=== PATIENT | male | born 1940 | race Caucasian/White ===

== ENCOUNTER 2021-05-03 09:15 | Inpatient (IN) ==
[2021-05-03] MEDS ORDERED: FUROSEMIDE 100 MG/10 ML VIAL IV STA (09:46)
[2021-05-03 10:12] LABS: Basophils % 0.3 % (0.0-0.8); Eosinophils # 0.2 10*3/uL (0.0-0.87); Eosinophils % 2.4 % (0.00-10.9); Hematocrit 32.1 VOL% (42.0-52.0); Hemoglobin 9.8 GM/DL (14.0-18.0); Immature Granulocytes % 0.4 %; Immature Granulocytes Absolute 0.03 #; Lymphocytes # 1.1 10*3/uL (1.4-4.0); Lymphocytes % 14.7 % (21.2-54.2); Mean Corpuscular HGB Conc 30.5 GM/DL (32-36); Mean Corpuscular Volume 104.2 FL (87-102); Neutrophils % 74.2 % (38.7-73.9); Platelet Count 185 T/CUMM (130-400); Red Blood Count 3.08 MC/CUMM (3.8-5.5); Red Cell Distribution Width 13.7 % (9.3-17.3); White Blood Count 7.4 T/CUMM (4-12)
[2021-05-03 10:24] LABS: Bilirubin,Total 0.5 MG/DL (0.20-1.00); Calcium 9.4 MG/DL (8.5-10.1); Total Protein 7.9 G/DL (6.4-8.2)
[2021-05-03 10:27] LABS: Osmolality,Calculated 266.4 MOS/KG (273-304); Potassium 3.8 MMOL/L (3.5-5.1)
[2021-05-03 11:51] LABS: ABG HCO3 37.9 MMOL/L (20-26); ABG PH 7.301 (7.35-7.45); ABG TCO2 40.7 MMOL/L (23-27)
[2021-05-03 11:53] LABS: ABG PCO2 90.1 MM HG (35-48)
[2021-05-03] MEDS ORDERED: hydrALAZINE 20 MG/1 ML VIAL IV PRN (11:56)
[2021-05-03] MEDS ORDERED: DEXTROSE 50% 25 GM/50 ML VIAL IV PRN (12:12)
[2021-05-03] MEDS ORDERED: GLUCAGON 1 MG VIAL IM PRN (12:12)
[2021-05-03] MEDS ORDERED: ACETAMINOPHEN 325 MG TABLET PO ONE (12:36)
[2021-05-03 12:39] LABS: Risk Ratio 2.85; Thyroid Stimulating Hormone 1.95 uIU/ml (0.358-3.74); VLDL Cholesterol 16.6 MG/DL
[2021-05-03] MEDS ORDERED: ZALEPLON 5 MG CAPSULE PO PRN (13:33)
[2021-05-03] MEDS ORDERED: guaiFENesin 200 MG/10 ML UDCUP PO PRN (13:33)
[2021-05-03 14:36] LABS: Folate > 24.00 NG/ML (5.38-24.0); Vitamin B12 592 PG/ML (211-911)
[2021-05-03] MEDS: INSULIN LISPRO 100 UNIT/ML SUBCUT SCH ×2 (18:31→22:28)
[2021-05-03] MEDS: carvediloL 3.125 MG TABLET PO SCH (18:34)
[2021-05-03] MEDS: ALBUTEROL/IPRATROPIUM 3 ML NEB RESP TX SCH (19:40)
[2021-05-03] MEDS: SACUBITRIL/VALSARTAN 49-51 MG TABLET PO SCH (22:26)
[2021-05-03] MEDS: SIMVASTATIN 20 MG TABLET PO SCH (22:27)
[2021-05-03] MEDS: GABAPENTIN 300 MG CAPSULE PO SCH (22:27)
[2021-05-03] MEDS: POTASSIUM CHLORIDE 10 MEQ TABLET PO SCH (22:27)
[2021-05-03] MEDS: APIXABAN 5 MG TABLET PO SCH (22:28)
[2021-05-03] MEDS: FUROSEMIDE 40 MG/4 ML VIAL IV SCH (22:28)
[2021-05-04] MEDS ORDERED: INFLUENZA VIRUS VACCINE 0.5 ML SYRINGE IM ONE (00:06)
[2021-05-04 04:21] LABS: ABG Base Excess 16.5 MMOL/L (-2.5-2.5); ABG HCO3 40.5 MMOL/L (20-26); ABG Oxygen Saturation 98.7 % (95-100); ABG PH 7.337 (7.35-7.45); ABG TCO2 42.6 MMOL/L (23-27)
[2021-05-04 04:27] LABS: ABG PCO2 85.8 MM HG (35-48)
[2021-05-04 06:27] LABS: Basophils % 0.3 % (0.0-0.8); Eosinophils # 0.1 10*3/uL (0.0-0.87); Eosinophils % 1.8 % (0.00-10.9); Hemoglobin 9.1 GM/DL (14.0-18.0); Immature Granulocytes % 0.4 %; Immature Granulocytes Absolute 0.03 #; Lymphocytes # 0.9 10*3/uL (1.4-4.0); Lymphocytes % 11.7 % (21.2-54.2); Mean Corpuscular HGB Conc 31.4 GM/DL (32-36); Mean Corpuscular Volume 104.3 FL (87-102); Mean Platelet Volume 10.1 FL (9.6-12.0); Monocytes % 11.1 % (1.7-12.7); Neutrophils % 74.7 % (38.7-73.9); Platelet Count 159 T/CUMM (130-400); Red Blood Count 2.78 MC/CUMM (3.8-5.5); Red Cell Distribution Width 13.9 % (9.3-17.3)
[2021-05-04 06:54] LABS: Calcium 9.3 MG/DL (8.5-10.1); Osmolality,Calculated 269.2 MOS/KG (273-304); Potassium 3.4 MMOL/L (3.5-5.1)
[2021-05-04] MEDS: ALBUTEROL/IPRATROPIUM 3 ML NEB RESP TX SCH ×3 (07:43→19:30)
[2021-05-04] MEDS ORDERED: POTASSIUM CHLORIDE 20 MEQ TABLET PO ONE (09:41)
[2021-05-04] MEDS: APIXABAN 5 MG TABLET PO SCH ×2 (10:09→21:56)
[2021-05-04] MEDS: GABAPENTIN 300 MG CAPSULE PO SCH ×2 (10:09→21:56)
[2021-05-04] MEDS: POTASSIUM CHLORIDE 10 MEQ TABLET PO SCH ×2 (10:09→21:55)
[2021-05-04] MEDS: SACUBITRIL/VALSARTAN 49-51 MG TABLET PO SCH (10:09)
[2021-05-04] MEDS: PANTOPRAZOLE 40 MG TABLET PO SCH (10:09)
[2021-05-04] MEDS: carvediloL 3.125 MG TABLET PO SCH ×2 (10:10→17:05)
[2021-05-04] MEDS: FUROSEMIDE 40 MG/4 ML VIAL IV SCH ×2 (10:14→17:05)
[2021-05-04] MEDS: POLYETHYLENE GLYCOL POWDER 17 GM PACK PO SCH (10:18)
[2021-05-04] MEDS: INSULIN LISPRO 100 UNIT/ML SUBCUT SCH ×3 (10:18→17:06)
[2021-05-04 10:26] LABS: High Sensitive Troponin I* 91.7 ng/L (0-78)
[2021-05-04] MEDS: SPIRONOLACTONE 25 MG TABLET PO SCH (11:23)
[2021-05-04 12:44] LABS: High Sensitive Troponin I* 89.1 ng/L (0-78)
[2021-05-04] MEDS: ZINC OXIDE PASTE 113 GM TUBE TOP SCH ×2 (13:54→21:56)
[2021-05-04] MEDS: PIPERACILLIN/TAZOBACTAM 3,375 MG in SODIUM CHLORIDE 0.9% 100 ML IV SCH ×2 (17:18→23:36)
[2021-05-04] MEDS: SIMVASTATIN 20 MG TABLET PO SCH (21:56)
[2021-05-04] MEDS: ACETAMINOPHEN 325 MG TABLET PO PRN (23:36)
[2021-05-05] MEDS: INSULIN LISPRO 100 UNIT/ML SUBCUT SCH ×4 (03:01→16:59)
[2021-05-05 03:33] LABS: ABG Base Excess 16.5 MMOL/L (-2.5-2.5); ABG HCO3 43.3 MMOL/L (20-26); ABG Oxygen Saturation 74.7 % (95-100); ABG PCO2 67.8 MM HG (35-48); ABG PH 7.423 (7.35-7.45); ABG TCO2 45.4 MMOL/L (23-27)
[2021-05-05 03:50] LABS: ABG PO2 39.9 MM HG (80-95)
[2021-05-05 04:33] LABS: ABG Base Excess 16.4 MMOL/L (-2.5-2.5); ABG HCO3 43.6 MMOL/L (20-26); ABG Oxygen Saturation 98.3 % (95-100); ABG PH 7.399 (7.35-7.45); ABG PO2 124.1 MM HG (80-95); ABG TCO2 45.8 MMOL/L (23-27)
[2021-05-05 04:42] LABS: ABG PCO2 72.1 MM HG (35-48)
[2021-05-05] MEDS: ACETAMINOPHEN 325 MG TABLET PO PRN ×2 (04:55→21:26)
[2021-05-05] MEDS: PIPERACILLIN/TAZOBACTAM 3,375 MG in SODIUM CHLORIDE 0.9% 100 ML IV SCH ×2 (06:27→16:16)
[2021-05-05] MEDS: ALBUTEROL/IPRATROPIUM 3 ML NEB RESP TX SCH ×3 (07:50→19:12)
[2021-05-05 08:33] LABS: Basophils % 0.4 % (0.0-0.8); Eosinophils # 0.2 10*3/uL (0.0-0.87); Eosinophils % 2.1 % (0.00-10.9); Hemoglobin 8.8 GM/DL (14.0-18.0); Immature Granulocytes % 0.5 %; Immature Granulocytes Absolute 0.04 #; Lymphocytes # 1.4 10*3/uL (1.4-4.0); Lymphocytes % 16.2 % (21.2-54.2); Mean Corpuscular HGB Conc 30.3 GM/DL (32-36); Mean Corpuscular Volume 104.3 FL (87-102); Mean Platelet Volume 10.7 FL (9.6-12.0); Monocytes % 9.9 % (1.7-12.7); Neutrophils % 70.9 % (38.7-73.9); Platelet Count 169 T/CUMM (130-400); Red Blood Count 2.78 MC/CUMM (3.8-5.5); Red Cell Distribution Width 14.5 % (9.3-17.3); White Blood Count 8.6 T/CUMM (4-12)
[2021-05-05 08:51] LABS: Calcium 8.9 MG/DL (8.5-10.1); Potassium 3.3 MMOL/L (3.5-5.1)
[2021-05-05] MEDS: carvediloL 3.125 MG TABLET PO SCH ×2 (09:36→17:38)
[2021-05-05] MEDS: SPIRONOLACTONE 25 MG TABLET PO SCH (09:37)
[2021-05-05] MEDS: POLYETHYLENE GLYCOL POWDER 17 GM PACK PO SCH (09:45)
[2021-05-05] MEDS: GABAPENTIN 300 MG CAPSULE PO SCH ×2 (09:45→21:25)
[2021-05-05] MEDS: POTASSIUM CHLORIDE 10 MEQ TABLET PO SCH ×2 (09:45→21:25)
[2021-05-05] MEDS: APIXABAN 5 MG TABLET PO SCH (09:45)
[2021-05-05] MEDS: PANTOPRAZOLE 40 MG TABLET PO SCH (09:45)
[2021-05-05] MEDS: ZINC OXIDE PASTE 113 GM TUBE TOP SCH (09:48)
[2021-05-05] MEDS: FUROSEMIDE 40 MG/4 ML VIAL IV SCH (10:01)
[2021-05-05 11:17] LABS: Bilirubin,Urine Negative (Negative); Blood, Urine Large mg/dL (Negative); Glucose,Urine (UA) Negative (Negative); Ketones,Urine Negative (Negative); Nitrite,Urine Negative (Negative); Protein,Urine Negative; RBC,Urine 24 /HPF (0-4); Urine Appearance CLEAR (Clear); Urine Color Yellow (Yellow); Urine Specific Gravity 1.019 (1.001-1.035); Urine Urobilinogen < 2.0 EU/DL (0.2-1.0)
[2021-05-05] MEDS: traMADol 50 MG TABLET PO PRN (11:26)
[2021-05-05] MEDS ORDERED: diphenhydrAMINE CAP 25 MG CAPSULE PO ONE (11:59)
[2021-05-05] MEDS ORDERED: POTASSIUM CHLORIDE 20 MEQ TABLET PO ONE (12:11)
[2021-05-05] MEDS: SIMVASTATIN 20 MG TABLET PO SCH (21:26)
[2021-05-06] MEDS: INSULIN LISPRO 100 UNIT/ML SUBCUT SCH ×5 (02:15→21:42)
[2021-05-06 04:45] LABS: ABG Base Excess 12.9 MMOL/L (-2.5-2.5); ABG HCO3 36.7 MMOL/L (20-26); ABG TCO2 37.8 MMOL/L (23-27)
[2021-05-06 04:46] LABS: ABG PCO2 70.7 MM HG (35-48)
[2021-05-06 05:32] LABS: Basophils % 0.2 % (0.0-0.8); Eosinophils # 0.4 10*3/uL (0.0-0.87); Hematocrit 30.1 VOL% (42.0-52.0); Hemoglobin 9.1 GM/DL (14.0-18.0); Immature Granulocytes % 0.6 %; Immature Granulocytes Absolute 0.05 #; Lymphocytes # 1.4 10*3/uL (1.4-4.0); Lymphocytes % 16.7 % (21.2-54.2); Mean Corpuscular HGB Conc 30.2 GM/DL (32-36); Mean Corpuscular Volume 104.5 FL (87-102); Monocytes % 9.6 % (1.7-12.7); Neutrophils % 67.9 % (38.7-73.9); Platelet Count 176 T/CUMM (130-400); Red Blood Count 2.88 MC/CUMM (3.8-5.5); Red Cell Distribution Width 14.6 % (9.3-17.3); White Blood Count 8.3 T/CUMM (4-12)
[2021-05-06 05:51] LABS: Calcium 8.8 MG/DL (8.5-10.1); Osmolality,Calculated 270.2 MOS/KG (273-304); Potassium 3.8 MMOL/L (3.5-5.1)
[2021-05-06] MEDS ORDERED: diphenhydrAMINE CAP 25 MG CAPSULE PO ONE (06:00)
[2021-05-06] MEDS: ALBUTEROL/IPRATROPIUM 3 ML NEB RESP TX SCH ×3 (07:05→19:30)
[2021-05-06] MEDS: PIPERACILLIN/TAZOBACTAM 3,375 MG in SODIUM CHLORIDE 0.9% 100 ML IV SCH ×4 (07:34→23:34)
[2021-05-06] MEDS: ACETAMINOPHEN 325 MG TABLET PO PRN (09:43)
[2021-05-06] MEDS: carvediloL 3.125 MG TABLET PO SCH ×2 (09:44→17:28)
[2021-05-06] MEDS: PANTOPRAZOLE 40 MG TABLET PO SCH (09:45)
[2021-05-06] MEDS: POTASSIUM CHLORIDE 10 MEQ TABLET PO SCH ×2 (09:45→21:41)
[2021-05-06] MEDS: ZINC OXIDE PASTE 113 GM TUBE TOP SCH ×3 (09:46→21:40)
[2021-05-06] MEDS: POLYETHYLENE GLYCOL POWDER 17 GM PACK PO SCH (10:53)
[2021-05-06] MEDS: GABAPENTIN 300 MG CAPSULE PO SCH ×2 (10:53→21:41)
[2021-05-06] MEDS: SODIUM CHLORIDE 0.9% 1,000 ML IV SCH ×4 (11:12→21:40)
[2021-05-06] MEDS ORDERED: HYDROmorphone 2 MG/1 ML VIAL ONE (12:08)
[2021-05-06] MEDS ORDERED: LIDOCAINE 1%/EPI INJ 20 ML VIAL ONE (12:08)
[2021-05-06] MEDS ORDERED: MIDAZOLAM 2 MG/2 ML VIAL ONE (12:08)
[2021-05-06] MEDS ORDERED: ceFAZolin 1,000 MG VIAL ONE (12:14)
[2021-05-06] MEDS ORDERED: TISSUE ADHESIVE 1 EACH APPLICATOR TOP ONE (13:13)
[2021-05-06] MEDS: SIMVASTATIN 20 MG TABLET PO SCH (21:41)
[2021-05-07 04:01] LABS: ABG Base Excess 10.3 MMOL/L (-2.5-2.5); ABG Oxygen Saturation 99.1 % (95-100); ABG PCO2 68.7 MM HG (35-48); ABG PH 7.352 (7.35-7.45); ABG TCO2 35.3 MMOL/L (23-27)
[2021-05-07 06:01] LABS: Basophils % 0.3 % (0.0-0.8); Eosinophils # 0.3 10*3/uL (0.0-0.87); Eosinophils % 4.8 % (0.00-10.9); Immature Granulocytes % 0.3 %; Immature Granulocytes Absolute 0.02 #; Lymphocytes % 14.9 % (21.2-54.2); Mean Corpuscular Volume 105.3 FL (87-102); Mean Platelet Volume 10.4 FL (9.6-12.0); Monocytes % 10.2 % (1.7-12.7); Neutrophils % 69.5 % (38.7-73.9); Platelet Count 171 T/CUMM (130-400); Red Blood Count 2.85 MC/CUMM (3.8-5.5); Red Cell Distribution Width 14.9 % (9.3-17.3); White Blood Count 6.9 T/CUMM (4-12)
[2021-05-07 06:16] LABS: Calcium 8.7 MG/DL (8.5-10.1); Osmolality,Calculated 269.4 MOS/KG (273-304); Potassium 3.9 MMOL/L (3.5-5.1)
[2021-05-07] MEDS: SODIUM CHLORIDE 0.9% 1,000 ML IV SCH ×2 (06:47→12:08)
[2021-05-07] MEDS: PIPERACILLIN/TAZOBACTAM 3,375 MG in SODIUM CHLORIDE 0.9% 100 ML IV SCH ×3 (07:16→23:20)
[2021-05-07] MEDS: ALBUTEROL/IPRATROPIUM 3 ML NEB RESP TX SCH ×3 (07:46→19:45)
[2021-05-07] MEDS: INSULIN LISPRO 100 UNIT/ML SUBCUT SCH ×4 (08:02→21:04)
[2021-05-07] MEDS ORDERED: BISACODYL 10 MG SUPP RECTAL ONE (08:41)
[2021-05-07] MEDS ORDERED: FUROSEMIDE 40 MG/4 ML VIAL IV SCH (09:00)
[2021-05-07] MEDS: carvediloL 3.125 MG TABLET PO SCH ×2 (09:16→17:37)
[2021-05-07] MEDS: GABAPENTIN 300 MG CAPSULE PO SCH ×2 (09:16→21:03)
[2021-05-07] MEDS: PANTOPRAZOLE 40 MG TABLET PO SCH (09:16)
[2021-05-07] MEDS: POLYETHYLENE GLYCOL POWDER 17 GM PACK PO SCH (09:16)
[2021-05-07] MEDS: POTASSIUM CHLORIDE 10 MEQ TABLET PO SCH ×2 (09:16→21:03)
[2021-05-07] MEDS: ZINC OXIDE PASTE 113 GM TUBE TOP SCH ×2 (09:18→21:03)
[2021-05-07] MEDS: APIXABAN 5 MG TABLET PO SCH ×2 (09:37→21:03)
[2021-05-07] MEDS: FUROSEMIDE 40 MG/4 ML VIAL IV SCH (17:37)
[2021-05-07] MEDS: ALBUMIN 25% 12.5 GM/50 ML VIAL IV SCH (17:37)
[2021-05-07] MEDS: SIMVASTATIN 20 MG TABLET PO SCH (21:03)
[2021-05-08] MEDS: traMADol 50 MG TABLET PO PRN ×2 (01:45→10:08)
[2021-05-08 04:11] LABS: ABG Base Excess 9.2 MMOL/L (-2.5-2.5); ABG HCO3 32.8 MMOL/L (20-26); ABG Oxygen Saturation 88.3 % (95-100); ABG PCO2 60.1 MM HG (35-48); ABG PH 7.386 (7.35-7.45); ABG PO2 57.9 MM HG (80-95); ABG TCO2 33.3 MMOL/L (23-27)
[2021-05-08] MEDS: ALBUMIN 25% 12.5 GM/50 ML VIAL IV SCH ×2 (05:37→16:00)
[2021-05-08] MEDS: FUROSEMIDE 40 MG/4 ML VIAL IV SCH ×2 (06:02→18:06)
[2021-05-08] MEDS: PIPERACILLIN/TAZOBACTAM 3,375 MG in SODIUM CHLORIDE 0.9% 100 ML IV SCH ×3 (06:24→22:15)
[2021-05-08 06:35] LABS: Basophils % 0.2 % (0.0-0.8); Eosinophils # 0.3 10*3/uL (0.0-0.87); Eosinophils % 3.2 % (0.00-10.9); Hematocrit 29.7 VOL% (42.0-52.0); Immature Granulocytes % 0.7 %; Immature Granulocytes Absolute 0.06 #; Lymphocytes % 11.6 % (21.2-54.2); Mean Corpuscular HGB Conc 30.3 GM/DL (32-36); Mean Corpuscular Volume 106.5 FL (87-102); Mean Platelet Volume 10.9 FL (9.6-12.0); Monocytes % 10.9 % (1.7-12.7); Neutrophils % 73.4 % (38.7-73.9); Platelet Count 160 T/CUMM (130-400); Red Blood Count 2.79 MC/CUMM (3.8-5.5); Red Cell Distribution Width 14.7 % (9.3-17.3)
[2021-05-08 07:07] LABS: Calcium 8.7 MG/DL (8.5-10.1); Osmolality,Calculated 272.2 MOS/KG (273-304); Potassium 3.3 MMOL/L (3.5-5.1)
[2021-05-08] MEDS: ALBUTEROL/IPRATROPIUM 3 ML NEB RESP TX SCH ×3 (07:14→19:55)
[2021-05-08] MEDS: INSULIN LISPRO 100 UNIT/ML SUBCUT SCH ×4 (08:18→21:00)
[2021-05-08] MEDS ORDERED: POTASSIUM CHLORIDE 20 MEQ TABLET PO ONE (09:02)
[2021-05-08] MEDS: APIXABAN 5 MG TABLET PO SCH ×2 (10:43→20:59)
[2021-05-08] MEDS: POLYETHYLENE GLYCOL POWDER 17 GM PACK PO SCH (10:43)
[2021-05-08] MEDS: ZINC OXIDE PASTE 113 GM TUBE TOP SCH ×2 (10:43→20:59)
[2021-05-08] MEDS: POTASSIUM CHLORIDE 10 MEQ TABLET PO SCH ×2 (10:43→20:59)
[2021-05-08] MEDS: carvediloL 3.125 MG TABLET PO SCH ×2 (10:43→18:06)
[2021-05-08] MEDS: GABAPENTIN 300 MG CAPSULE PO SCH ×2 (10:44→20:59)
[2021-05-08] MEDS: PANTOPRAZOLE 40 MG TABLET PO SCH (10:44)
[2021-05-08] MEDS: THEOPHYLLINE ER (24 HR) 400 MG CAPSULE PO SCH (10:44)
[2021-05-08] MEDS: SPIRONOLACTONE 25 MG TABLET PO SCH (18:06)
[2021-05-08] MEDS: SIMVASTATIN 20 MG TABLET PO SCH (20:59)
[2021-05-09 04:43] LABS: ABG Base Excess 10.2 MMOL/L (-2.5-2.5); ABG HCO3 33.9 MMOL/L (20-26); ABG Oxygen Saturation 92.2 % (95-100); ABG PH 7.385 (7.35-7.45); ABG PO2 64.6 MM HG (80-95); ABG TCO2 34.5 MMOL/L (23-27)
[2021-05-09] MEDS: FUROSEMIDE 40 MG/4 ML VIAL IV SCH ×2 (05:50→17:04)
[2021-05-09 05:54] LABS: Basophils % 0.3 % (0.0-0.8); Eosinophils # 0.2 10*3/uL (0.0-0.87); Eosinophils % 2.1 % (0.00-10.9); Hematocrit 28.3 VOL% (42.0-52.0); Hemoglobin 8.6 GM/DL (14.0-18.0); Immature Granulocytes % 0.7 %; Immature Granulocytes Absolute 0.06 #; Lymphocytes % 10.6 % (21.2-54.2); Mean Corpuscular HGB Conc 30.4 GM/DL (32-36); Mean Corpuscular Volume 105.2 FL (87-102); Mean Platelet Volume 10.1 FL (9.6-12.0); Monocytes % 10.4 % (1.7-12.7); Neutrophils % 75.9 % (38.7-73.9); Platelet Count 141 T/CUMM (130-400); Red Blood Count 2.69 MC/CUMM (3.8-5.5); Red Cell Distribution Width 14.6 % (9.3-17.3)
[2021-05-09 06:11] LABS: Osmolality,Calculated 270.2 MOS/KG (273-304); Potassium 3.7 MMOL/L (3.5-5.1)
[2021-05-09] MEDS: PIPERACILLIN/TAZOBACTAM 3,375 MG in SODIUM CHLORIDE 0.9% 100 ML IV SCH (06:17)
[2021-05-09] MEDS: ALBUMIN 25% 12.5 GM/50 ML VIAL IV SCH ×2 (06:44→16:40)
[2021-05-09] MEDS: ALBUTEROL/IPRATROPIUM 3 ML NEB RESP TX SCH ×3 (07:11→20:11)
[2021-05-09] MEDS: INSULIN LISPRO 100 UNIT/ML SUBCUT SCH ×4 (09:38→21:41)
[2021-05-09] MEDS: POLYETHYLENE GLYCOL POWDER 17 GM PACK PO SCH (09:38)
[2021-05-09] MEDS: POTASSIUM CHLORIDE 10 MEQ TABLET PO SCH ×2 (09:39→21:11)
[2021-05-09] MEDS: SPIRONOLACTONE 25 MG TABLET PO SCH (09:39)
[2021-05-09] MEDS: PANTOPRAZOLE 40 MG TABLET PO SCH (09:39)
[2021-05-09] MEDS: APIXABAN 5 MG TABLET PO SCH ×2 (09:39→21:11)
[2021-05-09] MEDS: THEOPHYLLINE ER (24 HR) 400 MG CAPSULE PO SCH (09:39)
[2021-05-09] MEDS: GABAPENTIN 300 MG CAPSULE PO SCH ×2 (09:40→21:11)
[2021-05-09] MEDS: carvediloL 3.125 MG TABLET PO SCH ×2 (09:40→16:40)
[2021-05-09] MEDS: ZINC OXIDE PASTE 113 GM TUBE TOP SCH ×2 (09:40→21:11)
[2021-05-09] MEDS: traMADol 50 MG TABLET PO PRN ×2 (09:45→21:17)
[2021-05-09] MEDS: DESITIN 4OZ/NYSTATIN 15 GRAM MIXTURE PASTE TOP SCH ×2 (14:43→21:12)
[2021-05-09] MEDS: SIMVASTATIN 20 MG TABLET PO SCH (21:11)
[2021-05-10] MEDS: FUROSEMIDE 40 MG/4 ML VIAL IV SCH (05:43)
[2021-05-10] MEDS: ALBUMIN 25% 12.5 GM/50 ML VIAL IV SCH (05:44)
[2021-05-10 05:55] LABS: Basophils % 0.4 % (0.0-0.8); Eosinophils # 0.3 10*3/uL (0.0-0.87); Eosinophils % 3.1 % (0.00-10.9); Hematocrit 27.9 VOL% (42.0-52.0); Hemoglobin 8.6 GM/DL (14.0-18.0); Immature Granulocytes % 0.5 %; Immature Granulocytes Absolute 0.04 #; Lymphocytes # 0.8 10*3/uL (1.4-4.0); Lymphocytes % 9.9 % (21.2-54.2); Mean Corpuscular HGB Conc 30.8 GM/DL (32-36); Mean Corpuscular Volume 104.9 FL (87-102); Mean Platelet Volume 10.3 FL (9.6-12.0); Monocytes % 12.2 % (1.7-12.7); Neutrophils % 73.9 % (38.7-73.9); Platelet Count 155 T/CUMM (130-400); Red Blood Count 2.66 MC/CUMM (3.8-5.5); Red Cell Distribution Width 14.6 % (9.3-17.3); White Blood Count 8.3 T/CUMM (4-12)
[2021-05-10 06:10] LABS: Calcium 9.4 MG/DL (8.5-10.1); Potassium 3.5 MMOL/L (3.5-5.1)
[2021-05-10] MEDS: ALBUTEROL/IPRATROPIUM 3 ML NEB RESP TX SCH ×2 (07:05→13:25)
[2021-05-10] MEDS ORDERED: LEVOFLOXACIN 500 MG TABLET PO SCH (09:00)
[2021-05-10] MEDS ORDERED: MULTIVITAMIN (CENTRUM) TABLET PO SCH (09:00)
[2021-05-10] MEDS: GABAPENTIN 300 MG CAPSULE PO SCH (09:56)
[2021-05-10] MEDS: carvediloL 3.125 MG TABLET PO SCH (09:56)
[2021-05-10] MEDS: POLYETHYLENE GLYCOL POWDER 17 GM PACK PO SCH (09:56)
[2021-05-10] MEDS: APIXABAN 5 MG TABLET PO SCH (09:56)
[2021-05-10] MEDS: POTASSIUM CHLORIDE 10 MEQ TABLET PO SCH (09:56)
[2021-05-10] MEDS: PANTOPRAZOLE 40 MG TABLET PO SCH (09:56)
[2021-05-10] MEDS: SPIRONOLACTONE 25 MG TABLET PO SCH (09:56)
[2021-05-10] MEDS: THEOPHYLLINE ER (24 HR) 400 MG CAPSULE PO SCH (09:57)
[2021-05-10] MEDS: INSULIN LISPRO 100 UNIT/ML SUBCUT SCH ×2 (09:57→12:27)
[2021-05-10] MEDS: ZINC OXIDE PASTE 113 GM TUBE TOP SCH (09:59)
[2021-05-10] MEDS: DESITIN 4OZ/NYSTATIN 15 GRAM MIXTURE PASTE TOP SCH (09:59)
[2021-05-10] MEDS ORDERED: FUROSEMIDE 20 MG TABLET PO SCH (16:00)
[2021-05-10 16:19] VITALS: BP 123/62
== END 2021-05-10 16:33 | disposition swing bed (61) | DRG 242 ==
LOC: EDUNIT# → EDBD → N.ED 09:15 → SUATTDRO 11:55 → N.EDINP 11:55 → N.TELEN 21:01
PROVIDERS: ADMIT Internal Medicine; ATTEND Internal Medicine
PROC: [UNRECOGNIZED PROCEDURE] (2021-05-06 12:45)